=== PATIENT | male | born 1950 | race Two or more races ===

== ENCOUNTER 2017-12-05 08:49 | Emergency (ER) | payer OTHER ==
[2017-12-05 09:02] VITALS: TEMP 98.4; BMI 27.3
[2017-12-05] MEDS ORDERED: methylPREDNISolone NA SUCC 125 MG/2 ML VIAL IVPB ONE (09:45)
[2017-12-05] MEDS ORDERED: ALBUTEROL SO4 2.5/IPRATROPIUM 0.5 INH SOL 3 ML VIAL.NEB. NEB ONE ×3 (09:45→13:56)
[2017-12-05] MEDS ORDERED: methylPREDNISolone NA SUCC 125 MG/2 ML VIAL ONE (09:53)
--- NOTE | 2017-12-05 09:53 | PDOC ---
History of Present Illness - General Chief Complaint: Shortness of Breath Stated Complaint: SOB Time Seen by Provider: 12/05/17 09:35 History Source: Patient Exam Limitations: No Limitations - History of Present Illness Initial Comments: This is a 67 YOM with h/o bronchitis (in Jul 2017) and HLD who p/w SOB and wheezing x2 days and 8/10 diffuse anterior lower chest pressure radiating to his throat since last night. He tried his Albuterol MDI which he was given in July (along with abx) during his recent bronchitis, and this has not provided relief. He additionally has cough and congestion as well as mild lightheadedness and mild palpitations. He denies any fever, chills, nausea, vomiting, diarrhea, constipation, abdominal pain, acid reflux-like sxs, LOC, vision changes, numbness, tingling, focal weakness, or other symptoms recently. He had a flight two days ago from [facility] to [facility] but has not had leg pain or swelling. He denies any recent sick contacts. Past History - Past Medical History Allergies/Adverse Reactions: Allergies Allergy/AdvReac Type Severity Reaction Status Date / Time No Known Allergies Allergy Verified 12/05/17 08:55 Home Medications: Ambulatory Orders Albuterol Sulfate Inhaler - [Ventolin Hfa Inhaler -] 2 inh PO Q4H 12/05/17 Azithromycin 250 mg PO DAILY #4 tablet 12/05/17 Finasteride [Proscar -] 5 mg PO DAILY 12/05/17 Guaifenesin/Dextromethorphan [Mucinex Dm ER 1,200-60 mg Tab] 1 each PO BID PRN 12/05/17 Loratadine [Claritin -] 10 mg PO DAILY PRN 12/05/17 Methimazole [Tapazole] 5 mg PO DAILY 12/05/17 Tamsulosin HCl [Flomax] 0.4 mg PO DAILY 12/05/17 COPD: No DVT: No Thyroid Disease: Yes (Hypothyroid) Other medical history: BPH - Immunization History Immunization Up to Date: Yes - Suicide/Smoking/Psychosocial Hx Smoking History: Former smoker Have you smoked in the past 12 months: No Information on smoking cessation initiated: No Hx Alcohol Use: No Drug/Substance Use Hx: No Substance Use Type: None Review of Systems - Review of Systems Able to Perform ROS?: Yes Constitutional: No: Chills, Fever, Unexplained wgt Loss HEENTM: No: Nose Congestion, Throat Pain Respiratory: Yes: Cough, Shortness of Breath, Wheezing Cardiac (ROS): Yes: Chest Pain (pressure), Lightheadedness (mild), Palpitations (mild). No: Edema, Syncope ABD/GI: No: Constipated, Diarrhea, Nausea, Vomiting : No: Burning, Dysuria Musculoskeletal: No: Back Pain, Neck Pain Integumentary: No: Bruising, Rash Neurological: No: Headache, Numbness, Tingling, Weakness Endocrine: No: Unexplained Weight Gain, Unexplained Weight Loss *Physical Exam - Vital Signs Last Vital Signs Temp Pulse Resp BP Pulse Ox 98.4 F 111 H 20 138/73 95 12/05/17 08:56 12/05/17 14:25 12/05/17 14:25 12/05/17 14:25 12/05/17 14:25 - Physical Exam General Appearance: Yes: Nourished, Appropriately Dressed, Other (well appearing alert and oriented adult male answering questions appropriately). No : Apparent Distress HEENT: positive: EOMI, Normal Voice, Hearing Grossly Normal. negative: Scleral Icterus (R), Scleral Icterus (L), Nasal Congestion Neck: positive: Trachea midline, Supple. negative: Tender, Rigid Respiratory/Chest: positive: Rapid RR, Rhonchi, Wheezing. negative: Respiratory Distress, Crackles, Stridor Cardiovascular: positive: Regular Rhythm, Regular Rate. negative: Edema, Murmur Gastrointestinal/Abdominal: positive: Normal Bowel Sounds, Soft. negative: Tender, Organomegaly, Pulsatile Mass, Guarding Musculoskeletal: positive: Normal Inspection. negative: Decreased Range of Motion, Vertebral Tenderness Extremity: positive: Normal Capillary Refill, Normal Inspection, Normal Range of Motion. negative: Tender, Cyanosis Integumentary: positive: Normal Color, Dry, Warm. 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 (grossly), Fully Oriented, Alert, Normal Mood/Affect, Normal Response, Motor Strength 5/5 Heart Score/ECG Review - History History: Slightly suspicious - Electrocardiogram EKG: Normal - Age Age: >/= 65 - Risk Factors Risk Factors Heart Score: Yes Smoking History Based on the list above the patient has:: 1-2 risk factors - Troponin Troponin: </= normal limit - Score Heart Score - Total: 3 #1 NSR rate of 90, no ischemic changes ED Treatment Course - LABORATORY CBC & Chemistry Diagram: 12/05/17 09:47 12/05/17 09:47 - ADDITIONAL ORDERS Additional order review: Laboratory Results 12/05/17 12/05/17 09:47 09:47 Sodium 142 Potassium 4.0 Chloride 109 H Carbon Dioxide 29 Anion Gap 4 L BUN 13 Creatinine 1.0 Creat Clearance w eGFR > 60 Random Glucose 97 Calcium 8.7 Total Bilirubin 0.5 AST 22 ALT 20 Alkaline Phosphatase 64 Creatine Kinase 139 Troponin I < 0.02 B-Natriuretic Peptide 26.53 Total Protein 7.0 Albumin 3.7 TSH 1.72 12/05/17 09:47 RBC 4.83 MCV 87.3 MCHC 33.7 RDW 15.2 MPV 7.1 L Neutrophils % 59.3 Lymphocytes % 21.1 Monocytes % 9.4 Eosinophils % 9.4 H Basophils % 0.8 - RADIOLOGY Radiology Studies Ordered: Category Date Time Status CHEST X-RAY PORTABLE* [RAD] Stat Radiology 12/05/17 09:46 Completed - Medications Given in the ED: ED Medications Discontinued Medications Generic Name Dose Route Start Last Admin Trade Name Freq PRN Reason Stop Dose Admin Albuterol Sulfate 1 amp 12/05/17 11:30 12/05/17 13:04 Ventolin 0.083% Nebulizer Soln - NEB 12/05/17 12:16 1 amp Q15M [place] Administration Albuterol/Ipratropium 3 amp 12/05/17 09:45 12/05/17 10:03 Duoneb - NEB 12/05/17 09:46 3 amp ONCE ONE Administration Albuterol/Ipratropium 1 amp 12/05/17 13:56 12/05/17 14:17 Duoneb - NEB 12/05/17 13:57 Not Given ONCE ONE Azithromycin 500 mg 12/05/17 11:48 12/05/17 11:59 Azithromycin PO 12/05/17 11:49 500 mg ONCE ONE Administration Magnesium Sulfate 2 gm 12/05/17 12:55 12/05/17 13:04 Magnesium Sulfate IVPB 12/05/17 12:56 2 gm ONCE ONE Administration Methylprednisolone Sodium Succinate 125 mg 12/05/17 09:45 12/05/17 10:03 Solu-Medrol - IVPB 12/05/17 09:46 125 mg ONCE ONE Administration Medical Decision Making - Medical Decision Making Patient p/w SOB, wheezing, chest discomfort.. Initial Vital Signs Temp Pulse Resp BP Pulse Ox 98.4 F 87 22 151/85 95 12/05/17 08:56 12/05/17 08:56 12/05/17 08:56 12/05/17 08:56 12/05/17 08:56 Exam: bilateral expiratory wheezes and rhonchi. DDX IBNLT: PNA, bronchitis, COPD, asthma, CHF, other lung disease, viral URI ( e.g. influenza), laryngitis, tracheitis, etc. DDX IBNLT: ACS, pericarditis, tamponade, aortic dissection, AAA, PTX, PE, esophageal tear, esophagitis (e.g. pill, infectious), esophageal stricture, esophageal FB, gastritis, PUD, pancreatitis, cholecystitis, cholangitis, colitis , bowel perforation, PNA/bronchitis, musculoskeletal, etc. W/U ordered: CBCD CMP Mg Phos Lipase Troponin CK CKMB Coags T&S UA UCx EKG CXR. W/U ordered: CXR EKG CBCD CMP Mg Phos Trop BNP TX ordered: DuoNeb x5, SoluMedrol, Mg sulfate Important to check Phos as severe hypophos can cause decr contractility and ventilation and rhabdo DISCHARGE CURB-65 and PSI suggest the patient may be appropriate for outpatient management. Workup is not concerning for emergency-level pathology at this time. The decision for disposition is carefully considered with the patient in shared decision making. The patient has gotten significant relief of symptoms with ED medications. They are appropriate for discharge with close outpatient follow up. The patient is comfortable with this plan and will follow up with their PCP in 1 -3 days. They will take Motrin and/or Tylenol for pain. They will follow up with their regular doctor in the next 1-3 days. Return precautions are discussed and they will come back to the ER if necessary. Laboratory Results - last 24 hr 12/05/17 12/05/17 12/05/17 09:47 09:47 09:47 WBC 6.5 RBC 4.83 Hgb 14.2 Hct 42.2 MCV 87.3 MCH 29.4 MCHC 33.7 RDW 15.2 Plt Count 166 MPV 7.1 L Neutrophils % 59.3 Lymphocytes % 21.1 Monocytes % 9.4 Eosinophils % 9.4 H Basophils % 0.8 Sodium 142 Potassium 4.0 Chloride 109 H Carbon Dioxide 29 Anion Gap 4 L BUN 13 Creatinine 1.0 Creat Clearance w eGFR > 60 Random Glucose 97 Calcium 8.7 Total Bilirubin 0.5 AST 22 ALT 20 Alkaline Phosphatase 64 Creatine Kinase 139 Troponin I < 0.02 B-Natriuretic Peptide 26.53 Total Protein 7.0 Albumin 3.7 TSH 1.72 HEART score: 3 Patient's walking pulse ox is 94% minimum. Vital Signs Temperature 98.4 F 12/05/17 08:56 Pulse Rate 111 H 12/05/17 14:25 Respiratory Rate 20 12/05/17 14:25 Blood Pressure 138/73 12/05/17 14:25 O2 Sat by Pulse Oximetry (%) 95 12/05/17 14:25 On HR re-check the HR is down to 104; patient states he normally runs in the upper 90s. He also just had 5 DuoNeb treatments which would explain the mild tachycardia. Reassessment: patient has minimal wheezing bilaterally and states much less SOB. Will do walking O2 road test and if patient does not desaturate lower than 92% can be discharged home. No new abnormal rhythms have been observed on the patient monitor. On last reassessment VS are stable, patients pain is resolved, SOB resolved, minimal wheezing, and exam is benign. The patients HEART score indicates they are low risk and do not require admission currently. The patient is appropriate for discharge with close outpatient follow up. Rx sent to patient's pharmacy for Z-pack. The patient has sufficient Albuterol MDI left currently and will get more when he returns home to [facility] tomorrow. They are comfortable with this plan and will follow up with their PCP in 1-3 days. They will follow up with their regular doctor in the next 1-3 days. Return precautions are discussed and they will come back to the ER if necessary. *DC/Admit/Observation/Transfer Diagnosis at time of Disposition: Bronchitis, Shortness of breath, Chest tightness - Discharge Dispostion Disposition: HOME Condition at time of disposition: Stable Admit: No - Prescriptions Prescriptions: Azithromycin 250 mg PO DAILY #4 tablet - Referrals - Patient Instructions Printed Discharge Instructions: DI for Acute Bronchitis Additional Instructions: You were seen in the ER for wheezing and shortness of breath and chest tightness. We gave you steroids and breathing treatments which resolved your symptoms while you were here in the department. We did blood work, an EKG, and a chest x-ray which did not show any concerning findings. After our assessment, we do not believe you are having a medical emergency at this time, and we believe you are safe to go home. We are sending a prescription for azithromycin to your pharmacy. Please take the whole course as prescribed, and follow up with your regular doctor(s) in the next 1-3 days. Call their clinic [facility], tell them you were seen in the ER for bronchitis, and tell them you need an appointment. Please come back to the ER at any time (24 hours a day) for any new or worsening symptoms, like worsened wheezing/shortness of breath that is not relieved with your home medications, new severe chest pain, loss of consciousness, or seizure. If you are having severe or life threatening symptoms , or symptoms that make it unsafe to drive or have someone drive you, please call 911. - Post Discharge Activity
[2017-12-05 10:20] LABS: BASO % 0.8 % (0-2.0); EOS % 9.4 % (0-4.5); HEMATOCRIT 42.2 % (35.4-49); HEMOGLOBIN 14.2 GM/dL (11.7-16.9); LYMPH % 21.1 % (8-40); MCH 29.4 pg (25.7-33.7); MCHC 33.7 g/dl (32.0-35.9); MEAN CELL VOLUME 87.3 fl (80-96); MEAN PLT VOLUME 7.1 fl (7.5-11.1); MONO % 9.4 % (3.8-10.2); NEUT % 59.3 % (42.8-82.8); PLATELET COUNT 166 K/MM3 (134-434); RBC 4.83 M/mm3 (4.00-5.60); RDW 15.2 % (11.9-15.9); WHITE BLOOD COUNT 6.5 K/mm3 (4.0-10.0)
[2017-12-05 10:37] LABS: ALBUMIN 3.7 g/dl (3.4-5.0); ANION GAP 4 (8-16); BLOOD UREA NITROGEN 13 mg/dL (7-18); CALCIUM 8.7 mg/dL (8.5-10.1); CHLORIDE 109 mmol/L (98-107); CO2 29 mmol/L (21-32); GLUCOSE,RANDOM 97 mg/dL (74-106); SGOT/AST 22 U/L (15-37); SGPT/ALT 20 U/L (12-78); SODIUM 142 mmol/L (136-145)
[2017-12-05 10:39] LABS: ALK PHOS 64 U/L (45-117); BILIRUBIN,TOTAL 0.5 mg/dL (0.2-1.0)
[2017-12-05 10:47] LABS: N-TERMINAL BNP 26.53 pg/ml (5-125)
--- NOTE | 2017-12-05 11:29 | PDOC ---
Attending Attestation - Resident Resident Name: Mouna Mckeon - ED Attending Attestation I have performed the following: I have examined & evaluated the patient, The case was reviewed & discussed with the resident, I agree w/resident's findings & plan, Exceptions are as noted - HPI HPI: 12/05/17 11:20 "The patient is a 67 year old female, with a significant PMH of hyperlipidemia, bronchitis (July 2017), who presents to the emergency department with 2 days of shortness of breath, wheezing and 1 day of lower chest pressure. Pt states that this started about a week ago and has progressively worsened. He reports cough productive of white sputum associated with wheezing. The patient states the lower chest pressure began last night and rates the pain as 8/10 exacerbated by coughing. The patient states he has taken his Albuterol inhaler with some relief. Pt denies leg swelling. He denies h/o asthma but states that he is a former smoker. He has had prior episodes of wheezing and uses albuterol at home but has never been diagnosed with COPD. Does not use home O2. The patient denies recent leg swelling, calf tenderness, headache or dizziness. Denies fever, chills, nausea, vomit, diarrhea and constipation. Denies dysuria, frequency, urgency and hematuria. Allergies: NKA " - Physicial Exam PE: 12/05/17 11:29 "GENERAL: Awake, alert, and fully oriented, in no acute distress. HEAD: No signs of trauma EYES: PERRLA, EOMI, sclera anicteric, conjunctiva clear ENT: Auricles normal inspection, hearing grossly normal, nares patent, oropharynx clear without exudates. Moist mucosa NECK: Nontender, no stepoffs, Normal ROM, supple, no lymphadenopathy, JVD, or masses LUNGS: + Diffuse expiratory and inspiratory wheezes, no rales/rhonchi HEART: Regular rate and rhythm, normal S1 and S2, no murmurs, rubs or gallops ABDOMEN: Soft, nontender, normoactive bowel sounds. No guarding, no rebound. No masses EXTREMITIES: Normal range of motion, no edema. No clubbing or cyanosis. No cords, erythema, or tenderness NEUROLOGICAL: Cranial nerves II through XII intact. 5/5 strength and sensation in all extremities, Normal speech, normal gait, normal cerebellar function SKIN: Warm, Dry, normal turgor, no rashes or lesions noted. " - Medical Decision Making 12/05/17 11:30 67 M with SOB, cough, and wheezing. Found to have bilateral wheezes on lung exam. Pt denies h/o asthma but is former [facility] smoker, making COPD most likely etiology. Will obtain CXR to r/o PNA and pulmonary edema. Cardiac enzymes to r/o ACS, though unlikely as EKG is nonischemic. - Labs, trop, BNP - CXR - Nebs, steroids, azithro 12/05/17 14:32 Pt reassessed s/p nebs and steroids - now feels much better Lung exam with minimal wheezing at this time. Ambulatory O2 sat 94%. Pt mildly tachycardic to 104 but likely 2/2 nebulizer treatments. Otherwise, HD stable. Pt is well appearing, Clinically stable for DC at this time. I discussed the physical exam findings, ancillary test results and final diagnoses with the patient. I answered all of the patient's questions. The patient was satisfied with the care received and felt comfortable with the discharge plan and treatment plan. The patient agrees to follow up with the primary care physician within 24-72 hours.
[2017-12-05] MEDS ORDERED: AZITHROMYCIN 500 MG TABLET PO ONE (11:48)
[2017-12-05] MEDS ORDERED: AZITHROMYCIN 250 MG TABLET ONE (11:54)
[2017-12-05] MEDS ORDERED: ALBUTEROL SO4 0.083% IH SOL 2.5 MG/3 ML VIAL.NEB. NEB ONE (11:54)
[2017-12-05] MEDS: ALBUTEROL SO4 0.083% IH SOL 2.5 MG/3 ML VIAL.NEB. NEB SCH ×4 (11:59→13:04)
[2017-12-05] MEDS ORDERED: MAGNESIUM SULF 50% (8.12 MEQ/2 ML-1 GM VIAL) IVPB ONE (12:55)
[2017-12-05] MEDS ORDERED: MAGNESIUM SULF 50% (8.12 MEQ/2 ML-1 GM VIAL) ONE (13:00)
--- NOTE | 2017-12-05 13:39 | EKG ---
Test Reason : Blood Pressure : / mmHG Vent. Rate : 090 BPM Atrial Rate : 090 BPM P-R Int : 182 ms QRS Dur : 080 ms QT Int : 356 ms P-R-T Axes : 080 046 062 degrees QTc Int : 435 ms NORMAL SINUS RHYTHM POSSIBLE LEFT ATRIAL ENLARGEMENT BORDERLINE ECG NO PREVIOUS ECGS AVAILABLE Confirmed by MD WILLIAM, LETICIA ([id number]) on 12/05/2017 1:38:51 PM Referred By: Confirmed By:LETICIA THOMAS MD
[2017-12-05 14:26] VITALS: BP 138/73; PULSE 111
== END 2017-12-05 15:21 | disposition home or self-care (01) ==
LOC: JER 08:49
PROC: 3E0F7GC Introduction of Other Therapeutic Substance into Respiratory Tract, Via Natural or Artificial Opening (ICD-10-PCS; principal; 2017-12-05)
PROC: 3E0F7GC Introduction of Other Therapeutic Substance into Respiratory Tract, Via Natural or Artificial Opening (ICD-10-PCS; 2017-12-05)
PROC: 3E0333Z Introduction of Anti-inflammatory into Peripheral Vein, Percutaneous Approach (ICD-10-PCS; 2017-12-05)
PROC: 3E033GC Introduction of Other Therapeutic Substance into Peripheral Vein, Percutaneous Approach (ICD-10-PCS; 2017-12-05)
DX: J20.9 Acute bronchitis, unspecified (principal); R00.2 Palpitations; Z87.891 Personal history of nicotine dependence
CPT/HCPCS: 36415; 71045-TC-FY; 80053; 82550; 83880; 84443; 84484; 85025; 93005; 93010; 94640; 96374; 96375; 99284-25